=== PATIENT | female | born 1995 | race Two or more races ===

== ENCOUNTER 2021-08-04 13:58 | Outpatient (CLI) | payer OTHER | END 2021-08-04 23:59 | disposition home or self-care (01) | LOC: LAB 13:58 | PROVIDERS: ATTEND Specialist | DX: Z01.812 Encounter for preprocedural laboratory examination (principal); Z20.822 Contact with and (suspected) exposure to COVID-19 | CPT/HCPCS: C9803; U0003 ==

== ENCOUNTER 2021-08-09 07:15 | Day surgery (SDC) | payer OTHER ==
[2021-08-09] MEDS ORDERED: FENTANYL PF 100MCG/2ML AMPUL ONE ×2 (07:45→09:26)
[2021-08-09] MEDS ORDERED: ROCURONIUM BROMIDE 50 MG/5 ML ONE (07:45)
[2021-08-09] MEDS ORDERED: BUPIVACAINE 0.5 % PF 150 MG/30 ML VIAL ONE (07:48)
[2021-08-09] MEDS ORDERED: POLYMYXIN B SULFATE 0 UNITS ONE (07:48)
[2021-08-09] MEDS ORDERED: HYDROCODONE/APAP 5/325MG TABLET ONE (11:05)
[2021-08-09] MEDS ORDERED: ANESTHESIA TRAY IN PYXIS 1 EA TRAY MC ONE (13:40)
== END 2021-08-09 13:30 | disposition home or self-care (01) ==
LOC: DS 07:15
PROVIDERS: ATTEND Specialist
DX: M22.02 Recurrent dislocation of patella, left knee (principal)
CPT/HCPCS: 27425; 27428; 84703; A6253; C1713; J1100; J2405; J2704; J3010 ×2; J3490 ×2; J7030